=== PATIENT | female | born 1945 | race American Indian/Alaskan Native ===

== ENCOUNTER 2018-09-20 12:10 | Observation (INO) ==
[2018-09-20] MEDS ORDERED: FUROSEMIDE 20 MG TABLET PO ONE (12:34)
[2018-09-20] MEDS ORDERED: DESMOPRESSIN ACETATE 20 MCG in 0.9 % SODIUM CHLORIDE 50 ML IV ONE (12:43)
[2018-09-20] MEDS ORDERED: CARVEDILOL 12.5 MG TABLET PO ONE (12:45)
[2018-09-20] MEDS ORDERED: cloNIDine HCL 0.1 MG TABLET PO ONE (13:45)
[2018-09-20] MEDS ORDERED: fentaNYL 100 MCG/2 ML VIAL IV ONE ×2 (14:00→16:02)
[2018-09-20] MEDS ORDERED: MIDAZOLAM 2 MG/2 ML VIAL IV ONE ×2 (14:00→16:02)
--- NOTE | 2018-09-20 14:28 | Internal Med History&Physical ---
Medical - H&P: [facility] Patient information: Note initiated : 09/20/18 at 2:16 pm Service Date, if different from initiated Date: [] Patient: Tevin Ny a 73 y/o F admitted on for desmopressin, kidney biopsy. Chief Complaint: [] History of present illness: Ms. Ny is a 73 year old F Who presents for a renal biopsy to rule out any immune related nephropathy. She has been followed by Dr. Astudillo outpatient for worsening renal function. 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 Blood pressure has been difficult to control at times she has been on hydralazine but that has been stopped because of positive ANCA. She is been intolerant to amlodipine. She is unable to take ARB/ACEI because of worsening renal function. Currently is on Coreg and clonidine. She is here today and will receive biopsy later this afternoon. She has no current complaints. Blood pressure she first arrived was quite elevated but last few blood pressures in her room have been 110's to 140, systolic. Review of Systems: denies headache/fever/chills/nausea/vomiting/chest or abdominal pain/cough/dyspnea/diarrhea. Main 10 point review of system reviewed negative Medical - H&P: H Medical history: Medical History (Last Reviewed 09/11/18 @ 14:49 by Melissa Acuna RN) Abnormal immunological finding in serum (Acute) ALINE positive (Acute) CKD (chronic kidney disease) stage 4, GFR 15-29 ml/min (Chronic) Hypertension in stage 4 chronic kidney disease due to type 2 diabetes mellitus (Chronic) Nephrotic syndrome due to diabetes mellitus (Chronic) Metabolic acidosis (Chronic) Secondary hyperparathyroidism of renal origin (Chronic) Anemia in stage 4 chronic kidney disease (Chronic) Cirrhosis of liver (Chronic) Functional visual loss (Chronic) Cough (Chronic) Acute bacterial bronchitis (Chronic) Ingrowing toenail (Chronic) Infiltrating duct carcinoma (Chronic) Inflammatory polyarthropathy (Chronic) Neck pain (Chronic) Cholelithiasis (Chronic) Diabetes mellitus, type II (Chronic) Chronic kidney disease (Acute) Left ventricular hypertrophy (Chronic) Chronic hepatitis (Chronic) Hyperlipidemia (Chronic) Hypertension, essential (Chronic) Gvmxg-9-tyhbjhidqty deficiency (Chronic) Social History (Last Updated 09/11/18 @ 15:45 by Nathaniel Soliman MD) Denies tobacco alcohol lives with family Family History (Last Reviewed 09/11/18 @ 14:49 by Melissa Acuna RN) Mother Heart disease Family/Other Heart disease Brother Hypertension Stomach cancer Sister Hypertension Diabetes Past Surgical History (Last Reviewed 09/11/18 @ 14:49 by Melissa Acuna RN) Hx of cataract extraction (Chronic) Hx of colonoscopy (Chronic) Medical - H&P: Meds Home Medications Medication Instructions Recorded Confirmed Type aspirin 81 mg tablet,delayed 81 mg PO QDAY 12/04/15 09/20/18 History release ergocalciferol (vitamin D2) 50,000 50,000 unit PO QWEEK #10 cap 03/27/18 09/20/18 Rx unit capsule ferrous sulfate 325 mg (65 mg 325 mg PO BID #60 tab 03/27/18 09/20/18 Rx iron) tablet glipizide ER 5 mg tablet, extended 5 mg PO QDAY #30 tab 03/27/18 09/20/18 Rx release 24 hr carvedilol 25 mg tablet 25 mg PO BID #90 tab 04/11/18 09/20/18 Rx furosemide 20 mg tablet 20 mg PO BID #30 tab 04/11/18 09/20/18 Rx clonidine HCl 0.1 mg tablet 0.1 mg PO BID #60 tab 06/05/18 09/20/18 Rx insulin glargine (U- 100) 100 60 unit SUB-Q BID ml 08/06/18 09/20/18 History unit/mL subcutaneous solution sodium polystyrene sulfonate [address] ONCE PRN #120 ml 08/06/18 09/11/18 Rx gram/120 mL enema Allergies Allergy/AdvReac Type Severity Reaction Status Date / Time insulin aspart [From Novolog] Allergy Intermediate Rash Verified 09/20/18 12:27 insulin lispro [From Humalog] Allergy Intermediate Rash Verified 09/20/18 12:27 acetaminophen Allergy Unknown Unknown Verified 09/20/18 12:27 Erythromycin Base Allergy Unknown Unknown Verified 09/20/18 12:27 ethinyl estradiol Allergy Unknown Unknown Verified 09/20/18 12:27 [From Ovral (21)] [id number] [From Ovral (21)] Allergy Unknown Unknown Verified 09/20/18 12:27 Penicillins Allergy Unknown Unknown Verified 09/20/18 12:27 Medical - H&P: Exam - Constitutional Vitals: Temp Pulse Resp BP Pulse Ox 97.7 F 64 18 190/86 98 09/20/18 13:37 09/20/18 13:37 09/20/18 13:37 09/20/18 13:37 09/20/18 13:37 Exam: General: Alert, Awake, No acute Distress Eyes/N/T: EOMI, PEERL, Head/Neck: neck supple, normocephalic atraumatic CV: RRR, 3/6 SM Pulm: Clear b/l, no wheezing/rhonchi/rales Abd: soft, nontender, +BS x4 Ext: no clubbing/cyanosis/edema Neuro: Alert, no focal deficits, moves all extremities, CN 2-12 grossly intact, symmetrical strength b/l upper/lower, sensations intact b/l upper/lower Skin: warm/dry Medical - H&P: Reslt - Labs CBC & Chem 7: 09/20/18 13:00 09/20/18 13:00 Labs: Short CBC 09/20/18 Range/Units 13:00 Hgb 9.7 L (12.0-15.0) g/dL Hct 29.4 L (36.0-48.0) % BMP 09/20/18 13:00 Potassium 4.6 Medical - H&P: A/P - Narrative A/P Narrative: A: *HTN: On Coreg and clonidine at home -Had been on hydralazine in the past but that was stopped because of positive ANCA -Unable to start ARB/ACEI outpatient -Has been intolerant of amlodipine *DM: On insulin glipizide *CKD, worsening renal function: Undergoing renal biopsy today *Cirrhosis (felt to be BYRD): *Anemia, chronic * P: -Continue Coreg/clonidine, PRN IV labetolol if available, PRN clonidine -Home basal insulin, clarify allergy to lispro/aspart -Nephrology on case -ppx: SCD
[2018-09-20] MEDS ORDERED: ONDANSETRON 4 MG/2 ML VIAL IV PRN ×2 (14:32→16:02)
[2018-09-20] MEDS ORDERED: cloNIDine HCL 0.1 MG TABLET PO PRN ×3 (14:42→16:02)
[2018-09-20] MEDS ORDERED: hydrALAZINE 20 MG/ML VIAL IV PRN (15:14)
--- NOTE | 2018-09-20 16:30 | Nephrology Progress Note ---
Subjective Patient information: Note initiated : 09/20/18 at 4:27 pm Service Date, if different from initiated Date: [] Patient: Tevin Ny a 73 y/o F admitted on 09/20/18 for desmopressin, kidney biopsy. Chief Complaint: [] Principal diagnosis: UNCONTROLLED HTN Interval history: Patient is a 73 y/o pleasant female, she follows with [facility] for her CKD issues she has h/o nephrotic syndrome with progressive worsening of her renal function. She has h/o diabetic retinopathy as well however she had c/o joint pain and her lupus labs were repeated which showed positive dsdna and hence rheuamtology recommended renal limited lupus be ruled out. Patient also has h/o widely flu ctuating BP with management challenged by intolerance to multiple meds and hence she was hospitalised pre procedure to ensure stable BP control and to give her desmopressin Patient was noted to have BP of 190/86 on presentation, she was given her home meds as she did not take this in am and then she became hypotensive and dizzy and hence it was decided to observe her overnight to ensure stable BP and perform biopsy in am, it would be challenging to bring her back as her HTN control has been challenging as documented above she denies SOB, CP no edema she has no other complaints Pertinent ROS: as above Objective - Vital Signs Vital signs: Vital Signs Temp Pulse Resp BP Pulse Ox 09/20/18 16:00 97.6 F 18 123/55 96 09/20/18 13:37 97.7 F 64 18 190/86 98 09/20/18 12:30 97.7 F 64 18 190/86 99 Intake and Output 09/20/18 09/20/18 09/20/18 05:59 13:59 21:59 Intake Total 55 360 Balance 55 360 Intake: IV 55 Ddavp 20 Mcg In Sodium Chloride 55 0.9% 50 ml @ 200 mls/hr IV ONCE ONE Rx#:[id number] Oral 360 Other: Weight 161 lb Patient Weight 09/21/18 05:59 Weight 161 lb Intake & Output: Intake & Output 09/20/18 09/20/18 09/20/18 05:59 13:59 21:59 Intake Total 55 360 Balance 55 360 Weight 161 lb Intake: IV 55 Ddavp 20 Mcg In Sodium Chloride 55 0.9% 50 ml @ 200 mls/hr IV ONCE ONE Rx#:[id number] Oral 360 - General Appearance General appearance: appears started age, chronically ill EENT: mucous membranes moist Neck: no JVD Respiratory: clear Cardiology: no rub, no edema, regular rate, regular rhythm Gastrointestinal: no tenderness, no guarding Integumentary: no rash, warm and dry Neurologic: alert and oriented x3 Musculoskeletal: no erythema, no cyanosis Psychiatric: mood/affect appropriate - Lab 09/20/18 13:00 09/20/18 13:00 Assessment and Plan (1) ALINE positive Status: Acute (2) CKD (chronic kidney disease) stage 4, GFR 15-29 ml/min Status: Chronic (3) Nephrotic syndrome due to diabetes mellitus Status: Chronic (4) Hypertension Status: Chronic Qualifiers: Hypertension type: secondary to other renal disorders Qualified Code(s): I15.1 - Hypertension secondary to other renal disorders - Narrative A/P Narrative: we can continue with carvedilol bid and use prn IV hydralazine if needed to keep BP under control if no issues overnight hopefully can get biopsy done tomorrow but she will need prolonged post procedure monitoring to ensure no further complications patient understands risk of biopsy, she understands this may not help salvage her renal function but she wishes to pursue this I appreciate Dr Dailey's help with managing this patient
[2018-09-20] MEDS: INSULIN GLARGINE, HUMAN 1 UNIT/0.01 ML SQ SCH (20:56)
[2018-09-20] MEDS: FERROUS SULFATE 325 MG TABLET PO SCH (20:56)
[2018-09-20] MEDS: 0.9 % SODIUM CHLORIDE 10 ML SYRINGE IV SCH (20:57)
[2018-09-20] MEDS: cloNIDine HCL 0.1 MG TABLET PO SCH (20:57)
[2018-09-20] MEDS: FUROSEMIDE 20 MG TABLET PO SCH (20:57)
[2018-09-20] MEDS ORDERED: NON FORMULARY MEDICATION 1 DOSE MISCELL (Carvedilol [Coreg] 25 MG) PO SCH (21:00)
[2018-09-20] MEDS ORDERED: 0.9 % SODIUM CHLORIDE 10 ML SYRINGE IV SCH (22:00)
[2018-09-21] MEDS: 0.9 % SODIUM CHLORIDE 10 ML SYRINGE IV SCH ×3 (05:25→21:11)
--- NOTE | 2018-09-21 07:25 | Internal Med Progress Note ---
Medical - PN: Subj Patient information: Note initiated : 09/21/18 at 7:19 am Service Date, if different from initiated Date: [] Patient: Tevin Ny a 73 y/o F admitted on 09/20/18 for desmopressin, kidney biopsy. Chief Complaint: [] Interval history: Ms. Ny is a 73 year old F Who presents for a renal biopsy to rule out any immune related nephropathy. She has been followed by Dr. Astudillo outpatient for worsening renal function. 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 Blood pressure has been difficult to control at times she has been on hydralazine but that has been stopped because of positive ANCA. She is been intolerant to amlodipine. She is unable to take ARB/ACEI because of worsening renal function. Currently is on Coreg and clonidine. She is here today and will receive biopsy later this afternoon. She has no current complaints. Blood pressure she first arrived was quite elevated but last few blood pressures in her room have been 110's to 140, systolic. 09/21 No overnight events other than blood pressure very labile. Patient now status post renal biopsy laying comfortably in bed. No pains or complaints. Review of Systems: denies headache/fever/chills/nausea/vomiting/chest or abdominal pain/cough/dyspnea/diarrhea. Otherwise see above. - Constitutional Vitals: Vital Signs Temp Pulse Resp BP Pulse Ox 97.6 F 64 18 145/78 98 09/21/18 04:00 09/21/18 04:00 09/21/18 04:00 09/21/18 04:00 09/21/18 04:00 Period Temp Pulse Resp BP Sys/Nicholas Pulse Ox Last 24 Hr 97.6 F-97.8 F 64-76 18-18 123-190/55-86 95-99 Intake and Output 09/20/18 09/21/18 09/21/18 21:59 05:59 13:59 Intake Total 600 Output Total 250 Balance 350 Weight 73.028 kg Intake & Output: Intake & Output 09/20/18 09/21/18 09/21/18 21:59 05:59 13:59 Intake Total 600 Output Total 250 Balance 350 Weight 73.028 kg Intake: Oral 600 Output: Void Amount 250 Other: Meal Dinner Percent of Meal Consumed 100% Feeding Ability Independent # Voids 2 Exam: General: Alert, Awake, No acute Distress Eyes/N/T: EOMI, , Head/Neck: neck supple, CV: RRR, 3/6 SM Pulm: Clear b/l, no wheezing/rhonchi/rales Abd: soft, nontender, +BS x4 Ext: no clubbing/cyanosis/edema Neuro: Alert, no focal deficits, moves all extremities, Skin: warm/dry Medical - PN: Obj Da - Labs CBC & Chem 7: 09/20/18 13:00 09/20/18 13:00 Labs: Abnormal Lab Results 09/20/18 09/20/18 13:00 13:00 Hgb 9.7 L Hct 29.4 L APTT 38 H Meds: Medications Carvedilol (Coreg) 25 mg PO BIDCC [facility] Clonidine HCl (Catapres) 0.05 mg PO Q4HP PRN PRN Reason: Hypertension SBP>150 Clonidine HCl (Catapres) 0.1 mg PO BID [facility] Last Admin: 09/20/18 20:57 Dose: 0.1 mg Documented by: Diagnostic Test (Pha) (Accu-Chek) 1 each FS ACHS [facility] Last Admin: 09/20/18 20:49 Dose: 1 each Documented by: Ergocalciferol (Drisdol) 50,000 unit PO QWEEK [facility] Ferrous Sulfate (Ferrous Sulfate) 325 mg PO BID [facility] Last Admin: 09/20/18 20:56 Dose: 325 mg Documented by: Furosemide (Lasix) 20 mg PO BID [facility] Last Admin: 09/20/18 20:57 Dose: 20 mg Documented by: Glipizide (Glucotrol Xl) 5 mg PO QDAY [facility] Hydralazine HCl (Apresoline) 0 mg IV Q2HP PRN PRN Reason: Hypertension Insulin Glargine (Lantus) 60 unit SQ BID [facility] Last Admin: 09/20/18 20:56 Dose: 60 unit Documented by: Ondansetron HCl (Zofran) 4 mg IV Q6HP PRN PRN Reason: Nausea And Vomiting Sodium Chloride (Saline Flush) 10 ml IV Q8 [facility] Last Admin: 09/21/18 05:25 Dose: 10 ml Documented by: Medical - PN: A/P - Time Spent With Patient Total time spent is greater than 50% in coordination of care (as documented) at patient's floor/unit and/or counseling patient: - Narrative A/P Narrative: A: *HTN: labile -On Coreg and clonidine at home -Had been on hydralazine in the past but that was stopped because of positive ANCA -Unable to start ARB/ACEI outpatient -Has been intolerant of amlodipine *DM: On insulin glipizide *CKD, worsening renal function: Undergoing renal biopsy today *Cirrhosis (felt to be BYRD): *Anemia, chronic P: -Continue Coreg/clonidine, PRN IV labetolol if available, prn IV hydralazine -Home basal insulin, clarify allergy to lispro/aspart, reg insulin SSI -Nephrology on case -ppx: SCD Medical - PN: Qual - VTE Deep Vein Thrombosis/Pulmonary Embolism Present on Admission: No
[2018-09-21] MEDS: INSULIN REGULAR, HUMAN 1 UNIT/0.01 ML UNIT SQ SCH ×4 (07:46→20:52)
[2018-09-21] MEDS: hydrALAZINE 20 MG/ML VIAL IV PRN ×2 (07:46→19:38)
[2018-09-21] MEDS ORDERED: MIDAZOLAM 2 MG/2 ML VIAL IV ONE (08:45)
[2018-09-21] MEDS ORDERED: fentaNYL 100 MCG/2 ML VIAL IV ONE (08:45)
[2018-09-21] MEDS ORDERED: ASPIRIN 81 MG TAB.CHEW PO SCH (09:00)
[2018-09-21] MEDS ORDERED: ERGOCALCIFEROL (VITAMIN D2) 50,000 UNIT CAPSULE PO SCH (09:00)
[2018-09-21] MEDS: CARVEDILOL 12.5 MG TABLET PO SCH ×2 (09:05→17:23)
[2018-09-21] MEDS: FERROUS SULFATE 325 MG TABLET PO SCH ×2 (09:28→21:10)
[2018-09-21] MEDS: cloNIDine HCL 0.1 MG TABLET PO SCH ×2 (09:28→21:10)
[2018-09-21] MEDS: FUROSEMIDE 20 MG TABLET PO SCH ×2 (09:28→21:10)
[2018-09-21] MEDS: glipiZIDE 5 MG TAB.XL.24H PO SCH (09:32)
--- NOTE | 2018-09-21 09:41 | Cat Scan Report ---
History: diabetes with stage V chronic kidney disease TECHNIQUE: The biopsy procedure and risks were explained and the patient consented after patient identification. She received Versed 1 mg and 50 mcg of fentanyl intravenously. Vital signs were monitored and remained stable throughout the exam. With the patient lying prone, the skin over the right flank was prepped with Betadine and then anesthetized with 1% lidocaine. Using CT guidance a coaxial 17/18 gauge biopsy needle was inserted into the cortex in the lower pole of the right kidney. Four core samples were obtained and sent for special stains and analysis. Images obtained following the biopsy show a small pararenal hematoma posterior to the kidney. There is no intraparenchymal or perirenal hematoma. IMPRESSION: Successful random biopsies in the lower pole of the right kidney Interpreted and Authenticated by: Perry Cantrell 09/21/18
[2018-09-21] MEDS: INSULIN GLARGINE, HUMAN 1 UNIT/0.01 ML SQ SCH ×2 (10:05→21:10)
[2018-09-21] MEDS ORDERED: CARVEDILOL 12.5 MG TABLET PO ONE ×2 (10:49→12:46)
--- NOTE | 2018-09-21 11:53 | Discharge Summary ---
Medical - DS: Prov Patient information: Note initiated : 09/21/18 at 11:52 am Service Date, if different from initiated Date: [] Patient: Tevin Ny a 73 y/o F admitted on 09/20/18 for desmopressin, kidney biopsy. Chief Complaint: [] Date of admission: 09/20/18 14:32 Discharge date: 09/22/18 Primary care physician: Conner Otto Consults: 09/20/18 12:41 Consult to Physician [CONS] Routine Comment: Consulting Provider: Vianney Cabrera Reason For Exam: Physician to Consult Medical - DS: Meds - Discharge Medications Active and Home Medications: Home Medications aspirin 81 mg tablet,delayed release 81 mg PO QDAY 12/04/15 [History Confirmed 09/20/18 Last Taken 09/19/18] ergocalciferol (vitamin D2) 50,000 unit capsule 50,000 unit PO QWEEK #10 cap [Rx Confirmed 09/20/18 Last Taken 09/13/18] ferrous sulfate 325 mg (65 mg iron) tablet 325 mg PO BID #60 tab 03/27/18 [Rx Confirmed 09/20/18 Last Taken 09/19/18] glipizide ER 5 mg tablet, extended release 24 hr 5 mg PO QDAY #30 tab 03/27/18 [Rx Confirmed 09/20/18 Last Taken 09/19/18] carvedilol 25 mg tablet 25 mg PO BID #90 tab 04/11/18 [Rx Confirmed 09/20/18 Last Taken 09/20/18] furosemide 20 mg tablet 20 mg PO BID #30 tab 04/11/18 [Rx Confirmed 09/20/18 Last Taken 09/20/18] clonidine HCl 0.1 mg tablet 0.1 mg PO BID #60 tab 06/05/18 [Rx Confirmed 09/20/18 Last Taken 09/20/18] insulin glargine (U- 100) 100 unit/mL subcutaneous solution 60 unit SUB-Q BID ml 08/06/18 [History Confirmed 09/20/18 Last Taken 09/19/18] sodium polystyrene sulfonate 30 gram/120 mL enema 30 g TX ONCE PRN #120 ml 08/06/18 [Rx Confirmed 09/20/18 Last Taken Unknown] Medical - DS: Hosp Hospital course: Ms. Ny is a 73 year old F Who presents for a renal biopsy to rule out any immune related nephropathy. She has been followed by Dr. Astudillo outpatient for worsening renal function. 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 Blood pressure has been difficult to control at times she has been on hydralazine but that has been stopped because of positive ANCA. She is been intolerant to amlodipine. She is unable to take ARB/ACEI because of worsening renal function. Currently is on Coreg and clonidine. She is here today and will receive biopsy later this afternoon. She has no current complaints. Blood pressure she first arrived was quite elevated but last few blood pressures in her room have been 110's to 140, systolic. 09/21 No overnight events other than blood pressure very labile. Patient now status post renal biopsy laying comfortably in bed. No pains or complaints. 09/22 Had biopsy yesterday. No overnight events. Patient feeling well. Stable for discharge. Discharge diagnosis: Hypertension and hypotension nephropathy Secondary discharge diagnosis: Diabetes chronic kidney disease cirrhosis chronic anemia - Time Spent with Patient Total time spent providing and/or coordinating discharge services: Greater than 30 minutes Medical - DS: Exam - Constitutional Vitals: Vital Signs Temp Pulse Pulse Resp BP BP Pulse Ox 09/21/18 11:39 98.2 F 20 164/69 96 09/21/18 11:00 68 17 156/62 95 09/21/18 10:45 71 15 154/63 95 09/21/18 10:30 72 17 154/67 96 09/21/18 10:00 76 18 169/74 96 09/21/18 09:45 80 17 189/73 97 09/21/18 09:30 78 16 170/69 97 09/21/18 09:15 97.0 F 75 16 177/78 97 09/21/18 09:00 97.0 F 86 17 189/86 95 09/21/18 08:55 99 H 16 187/81 100 09/21/18 08:50 97.0 F 99 H 16 187/81 100 09/21/18 08:45 100 H 19 193/86 92 09/21/18 08:40 97.0 F 84 18 190/85 94 09/21/18 07:57 97.4 F 59 L 19 195/100 95 09/21/18 04:00 97.6 F 64 18 145/78 98 09/21/18 00:00 97.8 F 67 18 159/65 96 09/20/18 20:00 97.7 F 76 18 164/65 95 09/20/18 16:00 97.6 F 18 123/55 96 09/20/18 14:32 95 09/20/18 13:37 97.7 F 64 18 190/86 98 09/20/18 12:30 97.7 F 64 18 190/86 99 Intake and Output 09/20/18 09/21/18 09/21/18 21:59 05:59 13:59 Intake Total 600 Output Total 250 25 Balance 350 -25 Intake: Oral 600 Output: Void Amount 250 25 Other: Meal Dinner Percent of Meal Consumed 100% Feeding Ability Independent Urine Appearance Clear Urine Color Bright Yellow # Voids 2 Weight 73.028 kg Medical - DS: Data Labs on day of discharge: Labs from last 24 hours 09/20/18 09/20/18 09/20/18 13:00 13:00 13:00 Hgb 9.7 L Hct 29.4 L PT INR APTT 38 H Potassium 4.6 09/20/18 13:00 Hgb Hct PT 14.1 INR 1.1 APTT Potassium Medical - DS: A/P - Patient/Caregiver Discharge Instructions Activity: increase activity as tolerated Diet: Renal/Consistent Carbs - Follow up Plan Follow up with: Vianney Cabrera MD [Physician] - Disposition: Home, Self-Care Prognosis: Fair Rehab Potential: Fair Medical - DS: Qual - VTE Deep Vein Thrombosis/Pulmonary Embolism Present on Admission: No
--- NOTE | 2018-09-21 13:27 | Nephrology Progress Note ---
Subjective Patient information: Note initiated : 09/21/18 at 1:24 pm Service Date, if different from initiated Date: [] Patient: Tevin Ny 73 y/o F admitted on 09/20/18 for desmopressin, kidney biopsy. Chief Complaint: [] Principal diagnosis: UNCONTROLLED HTN Interval history: Patient did have her biopsy today uneventful so far BP is a little elevated she has received clonidine and requested RN to give coreg 12.5mg followed by 12.5 mg again given persistently elevated BP she has very labile HTN and difficult to have optimal control she denies any SOB, CP no dizziness no edema no other concerns Pertinent ROS: as above Objective - Vital Signs Vital signs: Vital Signs Temp Pulse Pulse Resp BP BP Pulse Ox 09/21/18 11:39 98.2 F 20 164/69 96 09/21/18 11:00 68 17 156/62 95 09/21/18 10:45 71 15 154/63 95 09/21/18 10:30 72 17 154/67 96 09/21/18 10:00 76 18 169/74 96 09/21/18 09:45 80 17 189/73 97 09/21/18 09:30 78 16 170/69 97 09/21/18 09:15 97.0 F 75 16 177/78 97 09/21/18 09:00 97.0 F 86 17 189/86 95 09/21/18 08:55 99 H 16 187/81 100 09/21/18 08:50 97.0 F 99 H 16 187/81 100 09/21/18 08:45 100 H 19 193/86 92 09/21/18 08:40 97.0 F 84 18 190/85 94 09/21/18 08:00 66 20 96 09/21/18 07:57 97.4 F 59 L 19 195/100 95 09/21/18 04:00 97.6 F 64 18 145/78 98 09/21/18 00:00 97.8 F 67 18 159/65 96 09/20/18 20:00 97.7 F 76 18 164/65 95 09/20/18 16:00 97.6 F 18 123/55 96 09/20/18 14:32 95 09/20/18 13:37 97.7 F 64 18 190/86 98 Intake and Output 09/20/18 09/21/18 09/21/18 21:59 05:59 13:59 Intake Total 600 Output Total 250 25 Balance 350 -25 Intake: Oral 600 Output: Void Amount 250 25 Other: Meal Dinner Percent of Meal Consumed 100% Feeding Ability Independent Urine Appearance Clear Urine Color Bright Yellow # Voids 2 Weight 161 lb Intake & Output: Intake & Output 09/20/18 09/21/18 09/21/18 21:59 05:59 13:59 Intake Total 600 Output Total 250 25 Balance 350 -25 Weight 161 lb Intake: Oral 600 Output: Void Amount 250 25 Other: Meal Dinner Percent of Meal Consumed 100% Feeding Ability Independent Urine Appearance Clear Urine Color Bright Yellow # Voids 2 - General Appearance General appearance: appears started age, chronically ill EENT: mucous membranes moist Neck: no JVD Respiratory: clear Cardiology: no rub, no edema, regular rate, regular rhythm Gastrointestinal: no tenderness, no guarding Integumentary: warm and dry Neurologic: alert and oriented x3 Musculoskeletal: no erythema, no cyanosis - Lab 09/21/18 12:55 09/20/18 13:00 Assessment and Plan (1) ALINE positive Status: Acute (2) CKD (chronic kidney disease) stage 4, GFR 15-29 ml/min Status: Chronic (3) Nephrotic syndrome due to diabetes mellitus Status: Chronic (4) Hypertension Status: Chronic Qualifiers: Hypertension type: secondary to other renal disorders Qualified Code(s): I15.1 - Hypertension secondary to other renal disorders - Narrative A/P Narrative: s/p renal biopsy hb./hct stable will monitor q6hrs if stable will d/c home tomorrow BP control with coreg 25mg bid clonidine 0.05q4hr as needed if this does not work may use hydralazine 10mg IV as needed please call if any concerns
[2018-09-22] MEDS: hydrALAZINE 20 MG/ML VIAL IV PRN (05:15)
[2018-09-22] MEDS: 0.9 % SODIUM CHLORIDE 10 ML SYRINGE IV SCH (05:16)
[2018-09-22 06:22] LABS: Blood Urea Nitrogen 55 mg/dl (8-23)
[2018-09-22] MEDS: INSULIN REGULAR, HUMAN 1 UNIT/0.01 ML UNIT SQ SCH (08:00)
[2018-09-22] MEDS: glipiZIDE 5 MG TAB.XL.24H PO SCH (08:41)
[2018-09-22] MEDS: CARVEDILOL 12.5 MG TABLET PO SCH (08:41)
[2018-09-22] MEDS: INSULIN GLARGINE, HUMAN 1 UNIT/0.01 ML SQ SCH (08:41)
[2018-09-22] MEDS: cloNIDine HCL 0.1 MG TABLET PO SCH (08:42)
[2018-09-22] MEDS: FUROSEMIDE 20 MG TABLET PO SCH (08:42)
[2018-09-22] MEDS: FERROUS SULFATE 325 MG TABLET PO SCH (08:42)
--- NOTE | 2018-09-24 08:54 | Surgical Pathology Report ---
HISTOLOGY SPECIMEN MICROSCOPIC DIAGNOSIS KIDNEY, RIGHT, BIOPSY: -- SUBMITTED TO [facility] FOR RENAL PATHOLOGY (GROSS DIAGNOSIS). (RLF:adj) GROSS DESCRIPTION Received fresh labeled kidney on the container and right kidney on the requisition, are four core needle biopsy fragments of tomas tissue ranging in maximum length from 1.7 to 2.7 cm and with diameters of less than 0.1 cm. The specimen is subdivided into glutaraldehyde for electron microscopy, transport media for immunofluorescence and formalin for light microscopy. The entire specimen is submitted to the [facility] for processing. (RLF:talita) Electronically Signed by: Luciana Camacho M.D.
== END 2018-09-22 12:00 | disposition home or self-care (01) ==
LOC: ICU 12:10 → SUR 12:10
PROVIDERS: ADMIT Internal Medicine; ATTEND Internal Medicine